=== PATIENT | male | born 1980 | race Caucasian/White ===

== ENCOUNTER 2018-06-15 15:20 | Emergency (ER) | END 2018-06-15 19:44 | disposition home or self-care (01) ==

== ENCOUNTER 2019-03-30 12:44 | Emergency (ER) | payer MEDICAID ==
[~2019-03-30] VITALS: Ht 167.6 cm; Wt 92.0 kg
[~2019-03-30 12:44] MED LIST: HYDR-4011 PO; IBUP-1542 PO; ONDA4TAB14 PO; PANT40TA3 PO
[2019-03-30 12:52] VITALS: Ht 167.6 cm; Wt 92.0 kg
--- NOTE | 2019-03-30 12:58 | EN ---
Date/Time of Note Date/Time of Note DATE: 03/30/19 TIME: 12:56 ER Progress Note Quick RME note: Medical screening exam was initiated and lab/imaging studies were ordered. Patient will be seen in ED 2 by another provider. HPI: 39-year-old male brought in by friend who presents the ER for concerns of left arm pain x2 days. Pain is localized to the left forearm, wrist and hand. Swelling noted. Patient states he tripped and fell. Patient is right-hand dominant. Physical exam: LUE: Swelling noted throughout the left hand and wrist.. Skin intact. Decreased range of motion of the left elbow as well as wrist secondary to pain. Tender to palpation throughout the forearm, wrist and hand. Sensation intact to light touch. Neurovascularly intact. (Able to give thumbs up, make an ok sign, cross digits 2 and 3, thumb to pinky opposition. 2+ RP.) Questionable snuffbox tenderness. Orders placed: X-ray imaging of the left forearm, wrist and hand HORACE MURPHY PA-C Mar 30, 2019 12:58
[2019-03-30] MEDS ORDERED: HYDROCODONE/APAP (5/325) TAB PO ONE (14:30)
--- NOTE | 2019-03-30 14:30 | ERD ---
ER Documentation Chief Complaint Chief Complaint L [facility]; swelling/ redness noted. ETOH x2d HPI 39-year-old male presents with left wrist pain after mechanical fall that occurred yesterday. He is right-hand dominant. After the fall he states he drank alcohol to help with the pain again drink today to help with the pain. No numbness or tingling. No head injury. ROS All systems reviewed and are negative except as per history of present illness. Medications Home Meds Active Scripts Hydrocodone/Acetaminophen ([place] 5-325 Tablet) 1 Each Tablet, 1 TAB PO Q6H PRN for PAIN, #7 TAB Prov:LUKE WHITE PA-C 03/30/19 Ibuprofen* (Motrin*) 600 Mg Tab, 600 MG PO Q6H PRN for PAIN AND OR ELEVATED TEMP, #30 TAB Prov:LUKE WHITE PA-C 03/30/19 Ondansetron (Ondansetron Odt) 4 Mg Tab.rapdis, 4 MG PO Q6H PRN for NAUSEA AND/OR VOMITING, #10 TAB Prov:STEFANY HUERTA MD 06/15/18 Pantoprazole* (Protonix*) 40 Mg Tablet.dr, 40 MG PO DAILY, #20 TAB Prov:STEFANY HUERTA MD 06/15/18 Allergies Allergies: Coded Allergies: No Known Allergy (Unverified , 03/30/19) PMhx/Soc Hx Miscellaneous Medical Probl: Yes (ETOH) Hx Alcohol Use: Yes (beer @ 0800 today) Hx Substance Use: No Hx Tobacco Use: No FmHx Family History: No diabetes Physical Exam Vitals Vital Signs Date Temp Pulse Resp B/P (MAP) Pulse Ox O2 O2 Flow FiO2 Time Delivery Rate 03/30/19 100.0 99 20 167/98 99 12:52 (121) Physical Exam Const: No acute distress Head: Atraumatic Eyes: Normal Conjunctiva ENT: Normal External Ears, Nose and Mouth. Neck: Full range of motion. No meningismus. Resp: Clear to auscultation bilaterally Cardio: Regular rate and rhythm, no murmurs Left upper extremity: Swelling over wrist and distal radius aspect, tender to palpation in this area, no bony abnormalities, no snuffbox tenderness, capillary refill less than 2 seconds, radial pulse 2+, mild lateral elbow tenderness without any bony a normalities, sensation to light touch is intact throughout Neuro: Alert and oriented Results 24 hrs Current Medications Medications Dose Sig/Krystian Start Time Status Last (Trade) Ordered Route PRN Stop Time Admin Dose Reason Admin 1 tab ONCE ONCE 03/30/19 DC Acetaminophen PO 14:30 03/30/19 / 14:31 Hydrocodone Bitart ([place] (5/325)) Procedures/MDM Patient presents with fracture in his wrist after mechanical fall that occurred yesterday. X-rays from this. Placed in a wrist splint and outpatient orthopedi c follow-up. Also prescription for pain medication. Patient counseled regarding my diagnostic impression and care plan. Prior to discharge all questions answered. Pt agrees with treatment plan and understands strict return precautions. Pt is instructed to follow up with primary care provider within 24- 48 hours. Precautionary instructions provided including instructions to return to the ER if not improving or for any worsening or changing symptoms or concerns. Departure Diagnosis: Primary Impression: Wrist fracture Condition: Stable Patient Instructions: Fracture, Wrist [General] Referrals: [facility] () [facility] se hoyt hecho un examen mdico de control que le indica que no est en yolie condicin que requiera tratamiento urgente en el Departamento de Emergencia. Un estudio ms profundo y el tratamiento de lang condicin pueden esperar sin ningn riesgo hasta que usted sea atendida/o en el consultorio de lang mdico o yolie clnica. Es responsabilidad suya arreglar yolie dary para el seguimiento del roxann. MANEJO DE CONDICIONES NO URGENTES EN EL FUTURO 1) Si usted tiene un mdico de atencin primaria: Usted debera llamar a lang mdico de atencin primaria antes de venir al departamento de emergencia. Despus de las horas de consultorio, lang doctor o lang asociado/a est disponible por telfono. El mdico o enfermero de luly en el servicio telefnico puede asesorarle por mara medio para atender el problema, o roxann contrario se puede programar yolie dary. 2) Si usted no tiene un mdico de atencin primaria: Llame al mdico o condado institucions de referencia que aparece abajo raiza las horas de consultorio para hacer yolie dary para que le vean. SI USTED NO PUEDE PAGAR PARA SACHIN UN MEDICO puede ir a: [facility] [address] [place], [place] [id number] [place] [address] [address] [place] [address] PARA [facility] [address] [place], [place] [id number] Additional Instructions: Specialist:Usted tiene yolie condicin mdica que requiere que kell a un especialista dentro de los prximos 1-2 caballero.POR FAVOR,CON LANG SEGUIMIENTO DE PRIMARIA PHSICIAN refferal. SI USTED NO TIENE UN MDICO GENERAL Y / O USTED NO PUEDE PAGAR sachin a un mdico,los siguientes blakely RECURSOS sido suministrado a usted. ES LANG RESPONSABILIDAD PARA SER VISTOS POR EL ESPECIALISTA: [place]:Ir a alguna de las siguientes hospitales en los prximos 1-2 caballero: [facility] [address] [place] [address] [facility] [address] [place] [address] [facility] [address] [place] [address] LUKE WHITE PA-C Mar 30, 2019 14:30
[2019-03-30 15:00] VITALS: BP 136/84; PULSE 93; RESP 18
== END 2019-03-30 15:01 | disposition home or self-care (01) ==
LOC: FTE 12:44
DX: S52.502A Unspecified fracture of the lower end of left radius, initial encounter for closed fracture (principal); W18.39XA Other fall on same level, initial encounter; Y92.9 Unspecified place or not applicable
CPT/HCPCS: 29125; 73080; 73090; 73110; 73130; Z7502; Z7610